=== PATIENT | female | born 1965 | race Caucasian/White ===

== ENCOUNTER 2016-11-15 17:06 | Inpatient (IN) | payer MEDICAID ==
[~2016-11-15] VITALS: Ht 162.6 cm; Wt 72.6 kg
[2016-11-15 19:57] LABS: BASOPHILS % 0.9 % (0.0-2.0); EOSINOPHILS % 3.1 % (0.0-5.0); HEMATOCRIT. 38.9 % (36.0-48.0); HEMOGLOBIN. 12.6 g/dL (12.0-16.0); LYMPHOCYTES % 36.4 % (20.0-50.0); MEAN CORPUSCULAR HEMOGLOBIN 23.2 pg (28.0-32.0); MEAN CORPUSCULAR HGB CONC 32.4 g/dL (31.0-37.0); MEAN CORPUSCULAR VOLUME 71.6 fL (81.0-99.0); MEAN PLATELET VOLUME 8.4 fl (7.4-10.4); MONOCYTES % 7.1 % (2.0-8.0); NEUTROPHILS % 52.5 % (40.0-76.0); PLATELET 302 x1000/uL (130-400); RED BLOOD CELL COUNT 5.42 mill/uL (4.2-5.4); RED CELL DISTRIBUTION WIDTH 22.1 % (11.6-14.6); WHITE BLOOD COUNT 9.6 x1000/uL (4.5-11.0)
[2016-11-15 19:59] LABS: CHLORIDE 105 mEq/L (98-107); INDEX HEMOLYSI 1 (1-3); INDEX ICTERIC 1 (1-4); INDEX LIPEMIC 1 (1-3)
[2016-11-15 20:07] LABS: ALANINE AMINOTRANSFERASE 30 IU/L (13-61); ALBUMIN 3.4 g/dL (3.4-5.0); ANION GAP 12; CALCIUM 8.6 mg/dL (8.5-10.1); CARBON DIOXIDE 26 mEq/L (21-32); UREA NITROGEN BLOOD 12 mg/dL (7-21); eGFR > 60 mL/min (>60)
[2016-11-15 20:12] LABS: DIFFERENTIAL COMMENT 1
[2016-11-15 20:13] LABS: ADD RBC MORPHOLOGY YES
[2016-11-15 20:31] LABS: HYPOCHROMASIA 1+; PLATELET ESTIMATE NORMAL
[2016-11-15] MEDS ORDERED: ASPIRIN 325MG TABLET PO ONE (22:45)
[2016-11-16] VITALS: BP 128/77
[2016-11-16] MEDS ORDERED: SITA50TA3 PO (00:30)
[2016-11-16] MEDS ORDERED: GLIP10TA10 PO (00:30)
[2016-11-16] MEDS ORDERED: FERR-63 PO (00:30)
[2016-11-16 04:00] VITALS: BP 116/71
[2016-11-16] MEDS ORDERED: DEXTROSE 50% WATER 50ML SYRINGE IV PRN (04:00)
[2016-11-16] MEDS ORDERED: ACETAMINOPHEN 325MG TABLET PO PRN (04:00)
[2016-11-16] MEDS: BLOOD SUGAR DIAGNOSTIC STRIP TEST SCH ×4 (05:54→20:04)
[2016-11-16] MEDS: INSULIN LISPRO 100 UNITS/ML SUBCUT SCH ×4 (05:57→20:05)
[2016-11-16 08:00] VITALS: BP 133/75
[2016-11-16 08:59] LABS: BASOPHILS % 0.4 % (0.0-2.0); DIFFERENTIAL COMMENT 0; HEMATOCRIT. 35.9 % (36.0-48.0); HEMOGLOBIN. 11.3 g/dL (12.0-16.0); MEAN CORPUSCULAR HEMOGLOBIN 22.4 pg (28.0-32.0); MEAN CORPUSCULAR HGB CONC 31.5 g/dL (31.0-37.0); MEAN CORPUSCULAR VOLUME 71.1 fL (81.0-99.0); MEAN PLATELET VOLUME 8.2 fl (7.4-10.4); MONOCYTES % 5.4 % (2.0-8.0); NEUTROPHILS % 57.2 % (40.0-76.0); PLATELET 278 x1000/uL (130-400); RED BLOOD CELL COUNT 5.05 mill/uL (4.2-5.4); RED CELL DISTRIBUTION WIDTH 21.5 % (11.6-14.6); WHITE BLOOD COUNT 10.8 x1000/uL (4.5-11.0)
[2016-11-16 09:14] LABS: ANION GAP 11; CALCIUM 8.6 mg/dL (8.5-10.1); CARBON DIOXIDE 26 mEq/L (21-32); CHLORIDE 107 mEq/L (98-107); INDEX HEMOLYSI 1 (1-3); INDEX ICTERIC 1 (1-4); INDEX LIPEMIC 1 (1-3); MAGNESIUM 1.7 mg/dL (1.8-2.4); UREA NITROGEN BLOOD 12 mg/dL (7-21); eGFR > 60 mL/min (>60)
[2016-11-16] MEDS: GLIPIZIDE 10MG TABLET PO SCH ×2 (09:39→18:52)
[2016-11-16] MEDS: FERROUS SULFATE 325MG TABLET PO SCH ×2 (09:39→18:52)
[2016-11-16] MEDS: LINAGLIPTIN 5MG TABLET PO SCH (09:39)
[2016-11-16] MEDS: ASPIRIN 81MG TABLET PO SCH (09:39)
[2016-11-16 12:00] VITALS: BP 133/70
[2016-11-16] MEDS ORDERED: GADOBENATE DIMEGLUMINE 529 MG/ML 10ML IV ONE (14:07)
[2016-11-16] MEDS: PREDNISONE 20MG TABLET PO SCH (14:15)
[2016-11-16] MEDS: POLYVINYL ALCOHOL OPHTH DROPS 15ML LEFTEYE SCH ×2 (14:16→18:53)
[2016-11-16] MEDS: ACYCLOVIR 400 MG TABLET PO SCH ×2 (14:16→18:52)
[2016-11-16 16:00] VITALS: BP 124/70
[2016-11-16 16:24] LABS: *AMPHETAMINES SCREEN URINE NEGATIVE (NEGATIVE); *BARBITURATES SCREEN URINE NEGATIVE (NEGATIVE); *BENZODIAZEPINES SCREEN URINE NEGATIVE (NEGATIVE); *COCAINE SCREEN URINE NEGATIVE (NEGATIVE); CANNABINOID URINE SCREEN NEGATIVE (NEGATIVE); ECSTASY MDMA SCREEN URINE NEGATIVE (NEGATIVE); METHADONE URINE SCREEN NEGATIVE (NEGATIVE); OPIATES URINE SCREEN NEGATIVE (NEGATIVE); PHENCYCLIDINE URINE SCREEN NEGATIVE (NEGATIVE)
[2016-11-16 20:00] VITALS: BP 120/77
[2016-11-17] VITALS: BP 118/73
[2016-11-17] MEDS: POLYVINYL ALCOHOL OPHTH DROPS 15ML LEFTEYE SCH ×3 (00:21→12:10)
[2016-11-17 04:00] VITALS: BP 114/73
[2016-11-17] MEDS: INSULIN LISPRO 100 UNITS/ML SUBCUT SCH ×2 (06:12→12:34)
[2016-11-17] MEDS: BLOOD SUGAR DIAGNOSTIC STRIP TEST SCH ×2 (06:12→12:07)
[2016-11-17 06:19] LABS: BASOPHILS % 0.3 % (0.0-2.0); CHLORIDE 107 mEq/L (98-107); EOSINOPHILS % 0.3 % (0.0-5.0); HEMATOCRIT. 36.8 % (36.0-48.0); HEMOGLOBIN. 11.4 g/dL (12.0-16.0); INDEX HEMOLYSI 1 (1-3); INDEX ICTERIC 1 (1-4); INDEX LIPEMIC 1 (1-3); LYMPHOCYTES % 29.5 % (20.0-50.0); MEAN CORPUSCULAR HEMOGLOBIN 22.3 pg (28.0-32.0); MONOCYTES % 5.9 % (2.0-8.0); PLATELET 305 x1000/uL (130-400); RED BLOOD CELL COUNT 5.11 mill/uL (4.2-5.4); RED CELL DISTRIBUTION WIDTH 22.3 % (11.6-14.6); WHITE BLOOD COUNT 13.5 x1000/uL (4.5-11.0)
[2016-11-17 06:24] LABS: ANION GAP 13; CALCIUM 8.8 mg/dL (8.5-10.1); CARBON DIOXIDE 24 mEq/L (21-32); UREA NITROGEN BLOOD 13 mg/dL (7-21); eGFR > 60 mL/min (>60)
[2016-11-17 06:31] LABS: ADD RBC MORPHOLOGY NO; DIFFERENTIAL COMMENT 1
[2016-11-17 08:00] VITALS: BP 132/73
[2016-11-17] MEDS: ASPIRIN 81MG TABLET PO SCH (08:57)
[2016-11-17] MEDS: ACYCLOVIR 400 MG TABLET PO SCH ×2 (08:57→12:11)
[2016-11-17] MEDS: PREDNISONE 20MG TABLET PO SCH (08:57)
[2016-11-17] MEDS: FERROUS SULFATE 325MG TABLET PO SCH (08:57)
[2016-11-17] MEDS: GLIPIZIDE 10MG TABLET PO SCH (08:58)
[2016-11-17] MEDS: LINAGLIPTIN 5MG TABLET PO SCH (08:58)
[2016-11-17 12:00] VITALS: BP 131/81
[2016-11-17 14:13] VITALS: BP 131/81
== END 2016-11-17 14:40 | disposition home or self-care (01) | DRG 48 ==
LOC: ER 17:08 → 7EST 22:35
PROVIDERS: ADMIT Internal Medicine; ATTEND Internal Medicine
DX: G51.0 Bell's palsy (principal); E83.42 Hypomagnesemia; I10 Essential (primary) hypertension; G35 Multiple sclerosis; D64.9 Anemia, unspecified; E11.9 Type 2 diabetes mellitus without complications
CPT/HCPCS: 36415; 70450; 70551; 70552; 71010; 80048; 80053; 80305; 82962; 83036; 83735; 85025; 93005; 99285; A9577; J1815; J7512

== ENCOUNTER 2018-07-10 13:02 | Emergency (ER) | payer MEDICAID ==
[~2018-07-10] VITALS: Ht 167.6 cm; Wt 87.0 kg
[~2018-07-10 13:02] MED LIST: FERR-63 PO; GLIP10TA10 PO; SITA50TA3 PO
[2018-07-10] MEDS ORDERED: HYDROCODONE/ACETAMINOPHEN 5/325MG TABLET PO PRN (17:00)
[2018-07-10 19:40] VITALS: BP 140/75
== END 2018-07-10 19:41 | disposition home or self-care (01) ==
LOC: ER 15:08
DX: S83.92XA Sprain of unspecified site of left knee, initial encounter (principal); S20.211A Contusion of right front wall of thorax, initial encounter; W01.0XXA Fall on same level from slipping, tripping and stumbling without subsequent striking against object, initial encounter; Y93.9 Activity, unspecified; Y92.811 Bus as the place of occurrence of the external cause; F17.210 Nicotine dependence, cigarettes, uncomplicated
CPT/HCPCS: 71101; 73562; 73590; 99284

== ENCOUNTER 2018-11-17 05:43 | Emergency (ER) | payer MEDICAID ==
[~2018-11-17] VITALS: Ht 162.6 cm; Wt 86.0 kg
[2018-11-17] MEDS ORDERED: PROCHLORPERAZINE 10MG/2ML VIAL IV PRN (06:45)
[2018-11-17] MEDS ORDERED: DIPHENHYDRAMINE 50MG/ML VIAL IV ONE (06:45)
[2018-11-17 07:21] LABS: BASOPHILS % 0.3 % (0.0-2.0); EOSINOPHILS % 1.6 % (0.0-5.0); HEMATOCRIT. 42.9 % (36.0-48.0); HEMOGLOBIN. 14.4 g/dL (12.0-16.0); LYMPHOCYTES % 31.4 % (20.0-50.0); MEAN CORPUSCULAR HEMOGLOBIN 31.4 pg (28.0-32.0); MEAN CORPUSCULAR VOLUME 93.2 fL (81.0-99.0); MEAN PLATELET VOLUME 8.1 fl (7.4-10.4); MONOCYTES % 5.9 % (2.0-8.0); NEUTROPHILS % 60.8 % (40.0-76.0); PLATELET 214 x1000/uL (130-400); RED CELL DISTRIBUTION WIDTH 13.3 % (11.6-14.6)
[2018-11-17 07:26] LABS: CHLORIDE 108 mEq/L (98-107)
[2018-11-17] MEDS ORDERED: KETOROLAC 15MG/ML VIAL IV NR (07:45)
[2018-11-17] MEDS ORDERED: KETOROLAC 30MG/ML VIAL IV NR (08:00)
[2018-11-17 08:40] VITALS: BP 133/79
== END 2018-11-17 08:58 | disposition home or self-care (01) ==
LOC: ER 05:43
DX: R51 Headache (principal); M54.2 Cervicalgia; R11.2 Nausea with vomiting, unspecified; F17.200 Nicotine dependence, unspecified, uncomplicated; E11.9 Type 2 diabetes mellitus without complications; Z90.49 Acquired absence of other specified parts of digestive tract
CPT/HCPCS: 36415; 80053; 85025; 96374; 96375; 99283; J1200; J1885

== ENCOUNTER 2021-12-24 05:21 | Inpatient (IN) | payer MEDICAID ==
[~2021-12-24] VITALS: Ht 157.5 cm; Wt 87.2 kg
[2021-12-24] MEDS ORDERED: IOHEXOL-350 100 ML BOTTLE ONE (06:52)
[2021-12-24 06:54] LABS: BASOPHILS % 0.3 % (0.0-2.0); EOSINOPHILS % 2.1 % (0.0-5.0); HEMATOCRIT. 39.1 % (36.0-48.0); HEMOGLOBIN. 13.4 g/dL (12.0-16.0); LYMPHOCYTES % 44.4 % (20.0-50.0); MEAN CORPUSCULAR HEMOGLOBIN 31.6 pg (28.0-32.0); MEAN CORPUSCULAR VOLUME 91.9 fL (81.0-99.0); MEAN PLATELET VOLUME 7.9 fl (7.4-10.4); MONOCYTES % 6.7 % (2.0-8.0); NEUTROPHILS % 46.5 % (40.0-76.0); PLATELET 236 x1000/uL (130-400); RED BLOOD CELL COUNT 4.25 mill/uL (4.2-5.4); RED CELL DISTRIBUTION WIDTH 13.4 % (11.6-14.6)
[2021-12-24 07:01] LABS: CHLORIDE 104 mEq/L (98-107)
[2021-12-24] MEDS ORDERED: POTASSIUM CHLORIDE 20MEQ TABLET SR PO ONE (07:45)
[2021-12-24 07:59] LABS: CLARITY URINE CLEAR (CLEAR); COLOR URINE YELLOW (YELLOW); KETONES URINE NEGATIVE (NEGATIVE); LEUKOCYTE ESTERASE URINE 1+ (NEGATIVE); NITRITE URINE POSITIVE (NEGATIVE); OCCULT BLOOD URINE NEGATIVE (NEGATIVE); PROTEIN URINE NEGATIVE (NEGATIVE); SPECIFIC GRAVITY URINE 1.046 (1.005-1.030); UROBILINOGEN URINE 0.2 E.U./dL (0.2-1.0)
[2021-12-24] MEDS ORDERED: GUAIFENESIN 200MG/10ML SUGAR FREE UDC PO PRN (09:30)
[2021-12-24] MEDS ORDERED: NA PHOS,M-B/NA PHOS,DI-BA ENEMA 118ML PR PRN (09:30)
[2021-12-24] MEDS ORDERED: CLONIDINE 0.1MG TABLET PO PRN (09:30)
[2021-12-24] MEDS ORDERED: POTASSIUM CHLORIDE 20MEQ TABLET SR PO NR (09:30)
[2021-12-24] MEDS ORDERED: ONDANSETRON HCL 4MG/2ML INJ IV PRN (09:30)
[2021-12-24] MEDS ORDERED: DEXTROSE 50% WATER 50ML SYRINGE IV PRN (09:30)
[2021-12-24] MEDS ORDERED: IPRATROPIUM/ALBUTEROL 0.5-3(2.5)MG/3ML NEB NEB PRN (09:30)
[2021-12-24] MEDS ORDERED: NITROGLYCERIN 0.4MG TABLET SL SL PRN (09:30)
[2021-12-24] MEDS ORDERED: DOCUSATE SODIUM 100MG CAPSULE PO PRN (09:30)
[2021-12-24] MEDS ORDERED: MAGNESIUM/ALUMINUM HYDROXIDE/SIMETHICONE 30ML UDC PO PRN (09:30)
[2021-12-24] MEDS ORDERED: ACETAMINOPHEN 325MG TABLET PO PRN ×2 (09:30)
[2021-12-24] MEDS ORDERED: ZOLPIDEM TARTRATE 5MG TABLET PO PRN (09:30)
[2021-12-24 09:55] LABS: ETHANOL BLOOD < 10 mg/dL
[2021-12-24 09:57] LABS: TOTAL IRON BINDING CAPACITY 362 ug/dL (250-450)
[2021-12-24] MEDS ORDERED: KCL 20MEQ/100ML PREMIX 100 ML IV NR (10:00)
[2021-12-24 10:01] LABS: T4 FREE 1.03 ng/dL (0.76-1.46)
[2021-12-24 10:27] LABS: FOLIC ACID (FOLATE) SERUM 10.6 ng/mL (>5.38)
[2021-12-24] MEDS: FAMOTIDINE 20MG TABLET PO SCH ×2 (11:14→21:07)
[2021-12-24] MEDS: ENOXAPARIN 40MG/0.4ML SYR SUBCUT SCH (11:14)
[2021-12-24] MEDS: LISINOPRIL 20MG TABLET PO SCH ×2 (11:15→21:07)
[2021-12-24] MEDS: BLOOD SUGAR DIAGNOSTIC STRIP TEST SCH ×3 (13:40→21:07)
[2021-12-24] MEDS: INSULIN LISPRO 100 UNITS/ML SUBCUT SCH ×2 (13:49→21:14)
[2021-12-24 15:43] LABS: *AMPHETAMINES SCREEN URINE NEGATIVE (NEGATIVE); *BARBITURATES SCREEN URINE NEGATIVE (NEGATIVE); *BENZODIAZEPINES SCREEN URINE NEGATIVE (NEGATIVE); *COCAINE SCREEN URINE NEGATIVE (NEGATIVE); METHADONE URINE SCREEN NEGATIVE (NEGATIVE); OPIATES URINE SCREEN NEGATIVE (NEGATIVE)
[2021-12-24 15:44] LABS: CANNABINOID URINE SCREEN NEGATIVE (NEGATIVE); PHENCYCLIDINE URINE SCREEN NEGATIVE (NEGATIVE)
[2021-12-24 15:54] LABS: CREATINE KINASE 55 IU/L (26-192)
[2021-12-24 15:55] LABS: CREATINE KINASE MB FRACTION 1.4 ng/mL (0.5-3.6)
[2021-12-24 17:45] VITALS: BP 105/56
[2021-12-24] MEDS ORDERED: MAGNESIUM 2 G PREMIX 50 ML IV NR ×2 (19:00→22:00)
[2021-12-24 20:00] VITALS: BP 123/59
[2021-12-25] VITALS: BP 100/60
[2021-12-25 02:24] LABS: CREATINE KINASE 52 IU/L (26-192)
[2021-12-25 02:25] LABS: CREATINE KINASE MB FRACTION < 1.0 ng/mL (0.5-3.6)
[2021-12-25 04:00] VITALS: BP 96/54
[2021-12-25] MEDS: BLOOD SUGAR DIAGNOSTIC STRIP TEST SCH ×4 (06:44→20:44)
[2021-12-25 07:00] LABS: BASOPHILS % 0.4 % (0.0-2.0); EOSINOPHILS % 1.4 % (0.0-5.0); HEMATOCRIT. 43.3 % (36.0-48.0); HEMOGLOBIN. 14.4 g/dL (12.0-16.0); LYMPHOCYTES % 36.6 % (20.0-50.0); MEAN CORPUSCULAR HEMOGLOBIN 30.9 pg (28.0-32.0); MEAN CORPUSCULAR VOLUME 92.7 fL (81.0-99.0); MEAN PLATELET VOLUME 8.2 fl (7.4-10.4); MONOCYTES % 5.7 % (2.0-8.0); NEUTROPHILS % 55.9 % (40.0-76.0); PLATELET 246 x1000/uL (130-400); RED BLOOD CELL COUNT 4.67 mill/uL (4.2-5.4)
[2021-12-25 07:17] LABS: CHLORIDE 108 mEq/L (98-107)
[2021-12-25 07:27] LABS: PHOSPHORUS 4.2 mg/dL (2.5-4.9)
[2021-12-25 07:28] LABS: LDL CHOLESTEROL 85 mg/dL (5-100)
[2021-12-25 07:30] LABS: HDL CHOLESTEROL 44 mg/dL (40-59)
[2021-12-25] MEDS: INSULIN LISPRO 100 UNITS/ML SUBCUT SCH ×4 (07:51→20:44)
[2021-12-25 08:00] VITALS: BP 97/51
[2021-12-25] MEDS: FAMOTIDINE 20MG TABLET PO SCH ×2 (09:00→20:43)
[2021-12-25] MEDS: LISINOPRIL 20MG TABLET PO SCH ×2 (09:00→20:43)
[2021-12-25] MEDS: ASPIRIN 325MG EC TABLET PO SCH (09:00)
[2021-12-25] MEDS: ENOXAPARIN 40MG/0.4ML SYR SUBCUT SCH (09:01)
[2021-12-25 11:47] VITALS: BP 112/56
[2021-12-25 15:48] VITALS: BP 103/56
[2021-12-25] MEDS ORDERED: CEFTRIAXONE 1 G PREMIX 50 ML IV SCH (17:45)
[2021-12-25] MEDS: CEFTRIAXONE 1,000 MG in DEXTROSE 5% WATER 50 ML IV SCH (17:45)
[2021-12-25 20:00] VITALS: BP 96/40
[2021-12-26] VITALS: BP 124/54
[2021-12-26 04:00] VITALS: BP 118/78
[2021-12-26] MEDS: BLOOD SUGAR DIAGNOSTIC STRIP TEST SCH ×4 (06:11→21:01)
[2021-12-26 07:39] VITALS: BP 115/61
[2021-12-26] MEDS: FAMOTIDINE 20MG TABLET PO SCH ×2 (08:49→21:00)
[2021-12-26] MEDS: LISINOPRIL 20MG TABLET PO SCH ×2 (08:49→21:00)
[2021-12-26] MEDS: ASPIRIN 325MG EC TABLET PO SCH (08:49)
[2021-12-26] MEDS: INSULIN LISPRO 100 UNITS/ML SUBCUT SCH ×4 (08:54→21:01)
[2021-12-26] MEDS: ENOXAPARIN 40MG/0.4ML SYR SUBCUT SCH (09:07)
[2021-12-26 11:33] VITALS: BP 132/62
[2021-12-26] MEDS: KETOROLAC 15MG/ML VIAL IV PRN (12:23)
[2021-12-26 16:00] VITALS: BP 117/50
[2021-12-26] MEDS: CEFTRIAXONE 1,000 MG in DEXTROSE 5% WATER 50 ML IV SCH (17:18)
[2021-12-26 20:00] VITALS: BP 129/65
[2021-12-27] VITALS: BP 120/62
[2021-12-27] MEDS: KETOROLAC 15MG/ML VIAL IV PRN (02:30)
[2021-12-27 04:00] VITALS: BP 112/62
[2021-12-27] MEDS: BLOOD SUGAR DIAGNOSTIC STRIP TEST SCH ×4 (06:17→21:01)
[2021-12-27] MEDS: INSULIN LISPRO 100 UNITS/ML SUBCUT SCH ×4 (07:46→21:03)
[2021-12-27 07:52] VITALS: BP 115/56
[2021-12-27] MEDS: ASPIRIN 325MG EC TABLET PO SCH (08:36)
[2021-12-27] MEDS: LISINOPRIL 20MG TABLET PO SCH ×2 (08:37→21:01)
[2021-12-27] MEDS: ENOXAPARIN 40MG/0.4ML SYR SUBCUT SCH (08:37)
[2021-12-27] MEDS: FAMOTIDINE 20MG TABLET PO SCH ×2 (08:37→21:00)
[2021-12-27 12:00] VITALS: BP 105/66
[2021-12-27] MEDS: NITROFURANTOIN 100MG M/M CAPSULE PO SCH ×2 (12:27→21:00)
[2021-12-27 16:00] VITALS: BP 116/59
[2021-12-27 20:00] VITALS: BP 125/66
[2021-12-28] VITALS: BP 119/54
[2021-12-28 04:00] VITALS: BP 102/64
[2021-12-28] MEDS: BLOOD SUGAR DIAGNOSTIC STRIP TEST SCH ×2 (07:40→12:25)
[2021-12-28] MEDS: INSULIN LISPRO 100 UNITS/ML SUBCUT SCH ×2 (07:46→12:27)
[2021-12-28 08:00] VITALS: BP 120/65
[2021-12-28] MEDS: NITROFURANTOIN 100MG M/M CAPSULE PO SCH (08:06)
[2021-12-28] MEDS: LISINOPRIL 20MG TABLET PO SCH (08:07)
[2021-12-28] MEDS: ASPIRIN 325MG EC TABLET PO SCH (08:07)
[2021-12-28] MEDS: FAMOTIDINE 20MG TABLET PO SCH (08:07)
[2021-12-28] MEDS: ENOXAPARIN 40MG/0.4ML SYR SUBCUT SCH (10:02)
[2021-12-28 10:50] VITALS: BP 122/53
[2021-12-28 12:00] VITALS: BP 122/53
== END 2021-12-28 13:45 | disposition home or self-care (01) | DRG 47 ==
LOC: ER 05:21 → 7EST 08:05 → ENRESERV 16:47 → 7WST 12-27 20:19
PROVIDERS: ADMIT Internal Medicine; ATTEND Internal Medicine
DX: G45.9 Transient cerebral ischemic attack, unspecified (principal); U07.1 COVID-19; E43 Unspecified severe protein-calorie malnutrition; E83.51 Hypocalcemia; E87.1 Hypo-osmolality and hyponatremia; E83.42 Hypomagnesemia; E87.6 Hypokalemia; E11.65 Type 2 diabetes mellitus with hyperglycemia; N30.00 Acute cystitis without hematuria; F17.210 Nicotine dependence, cigarettes, uncomplicated; I10 Essential (primary) hypertension; Z79.4 Long term (current) use of insulin; Z79.84 Long term (current) use of oral hypoglycemic drugs; Z79.899 Other long term (current) drug therapy; Z90.49 Acquired absence of other specified parts of digestive tract; Z71.6 Tobacco abuse counseling; Z68.35 Body mass index [BMI] 35.0-35.9, adult
CPT/HCPCS: 36415; 70496; 70498; 70551; 71045; 80053; 80061; 80305; 80320; 81003; 82330; 82550; 82553; 82607; 82746; 82962; 83036; 83540; 83550; 83735; 83880; 83970; 84100; 84439; 84443; 84484; 85025; 87077; 87186; 87426; 93005; 93970; 99291; J0696; J1650; J1815; J1885; J2405; J3475; J3480; J7040; J7060; Q9967; G0480

== ENCOUNTER 2022-07-04 06:26 | Emergency (ER) | payer MEDICAID ==
[~2022-07-04] VITALS: Ht 154.9 cm; Wt 76.0 kg
[~2022-07-04 06:26] MED LIST changes: -FERR-63 PO
[2022-07-04 08:56] VITALS: BP 121/73
[2022-07-04] MEDS ORDERED: ACETAMINOPHEN 325MG TABLET PO ONE (09:00)
[2022-07-04] MEDS ORDERED: IBUPROFEN 400MG TABLET PO ONE (09:00)
== END 2022-07-04 12:10 | disposition home or self-care (01) ==
LOC: ER 06:26
DX: R50.9 Fever, unspecified (principal); M79.18 Myalgia, other site; E11.9 Type 2 diabetes mellitus without complications; Z20.822 Contact with and (suspected) exposure to COVID-19
CPT/HCPCS: 71046; 87426; 87804; 99284; C9803

== ENCOUNTER 2023-11-08 20:08 | Emergency (ER) | payer MEDICAID, OTHER ==
[~2023-11-08] VITALS: Ht 161.3 cm; Wt 162.0 kg
[2023-11-08 20:17] VITALS: BP 157/68; PULSE 66; TEMP 98.6; O2SAT 94
[2023-11-08 20:58] LABS: BASOPHILS % 0.5 % (0.0-2.0); EOSINOPHILS % 1.9 % (0.0-5.0); HEMATOCRIT. 39.5 % (36.0-48.0); HEMOGLOBIN. 13.8 g/dL (12.0-16.0); LYMPHOCYTES % 33.8 % (20.0-50.0); MEAN CORPUSCULAR HEMOGLOBIN 33.6 pg (28.0-32.0); MEAN CORPUSCULAR VOLUME 95.9 fL (81.0-99.0); NEUTROPHILS % 56.8 % (40.0-76.0); PLATELET 239 x1000/uL (130-400); RED BLOOD CELL COUNT 4.12 mill/uL (4.2-5.4); RED CELL DISTRIBUTION WIDTH 12.8 % (11.6-14.6); WHITE BLOOD COUNT 8.2 x1000/uL (4.5-11.0)
[2023-11-08 21:00] LABS: CLARITY URINE CLEAR (CLEAR); COLOR URINE YELLOW (YELLOW); GLUCOSE URINE 3+ (NEGATIVE); KETONES URINE NEGATIVE (NEGATIVE); LEUKOCYTE ESTERASE URINE TRACE (NEGATIVE); NITRITE URINE NEGATIVE (NEGATIVE); OCCULT BLOOD URINE NEGATIVE (NEGATIVE); PROTEIN URINE NEGATIVE (NEGATIVE); SPECIFIC GRAVITY URINE 1.014 (1.005-1.030); UROBILINOGEN URINE 0.2 E.U./dL (0.2-1.0)
[2023-11-08 21:16] LABS: BACTERIA URINE NONE SEEN; RBC URINE NONE SEEN /hpf (0-2); SQUAMOUS EPITHELIAL CELL URINE 1+ /lpf (RARE/1+)
[2023-11-08 21:17] LABS: ALANINE AMINOTRANSFERASE < 7 IU/L (10-49); ALBUMIN 4.1 g/dL (3.2-4.8); ASPARTATE AMINOTRANSFERASE 13 IU/L (<34); BILIRUBIN TOTAL 0.3 mg/dL (0.1-1.0); CALCIUM 9.1 mg/dL (8.7-10.4); CARBON DIOXIDE 28 mEq/L (21-32); CHLORIDE 104 mEq/L (98-107); CREATININE 0.7 mg/dL (0.6-1.0); GLUCOSE 301 mg/dL (70-105); POTASSIUM 3.9 mEq/L (3.5-5.1); PROTEIN TOTAL 6.7 g/dL (6.0-8.3); SODIUM 138 mEq/L (136-145); TROPONIN I HIGH SENSITIVITY 21 ng/L (3.0-34); UREA NITROGEN BLOOD 11 mg/dL (9-23)
[2023-11-09] MEDS ORDERED: LIDO700A15 TP (01:09)
[2023-11-09] MEDS ORDERED: TRAMADOL 50MG TABLET PO ONE (01:15)
[2023-11-09] MEDS: HYDROCODONE/ACETAMINOPHEN 5/325MG TABLET PO ONE ×2 (01:20→01:21)
[2023-11-09 01:22] VITALS: RESP 16
== END 2023-11-09 01:24 | disposition home or self-care (01) ==
LOC: ER 20:08
DX: G89.29 Other chronic pain (principal); R10.9 Unspecified abdominal pain; E11.9 Type 2 diabetes mellitus without complications; Z90.49 Acquired absence of other specified parts of digestive tract; Z90.410 Acquired total absence of pancreas
CPT/HCPCS: 36415; 80053; 81003; 81025; 84484; 85025; 93005; 99284